=== PATIENT | male | born 1985 | race Caucasian/White ===

== ENCOUNTER 2016-10-18 14:04 | Inpatient (IN) | payer MEDICAID ==
[~2016-10-18] VITALS: Ht 172.7 cm; Wt 76.9 kg
[2016-10-18 15:38] VITALS: BP 111/74
[2016-10-18 16:45] VITALS: BP 120/82
[2016-10-19 06:36] VITALS: BP 116/76
[2016-10-19] MEDS: LORazepam 2 MG TABLET PO PRN ×3 (08:36→16:54)
[2016-10-19] MEDS: BENZTROPINE MESYLATE 0.5 MG TABLET PO SCH ×4 (08:36→16:57)
[2016-10-19] MEDS: HALOPERIDOL 5 MG TABLET PO SCH ×4 (08:36→16:56)
[2016-10-19 16:03] VITALS: BP 112/76
[2016-10-20 06:23] VITALS: BP 126/79
[2016-10-20] MEDS: HALOPERIDOL 5 MG TABLET PO SCH ×2 (09:16→16:38)
[2016-10-20] MEDS: BENZTROPINE MESYLATE 0.5 MG TABLET PO SCH ×2 (09:16→16:38)
[2016-10-20 09:20] VITALS: BP 110/62
[2016-10-20 16:06] VITALS: BP 111/68
[2016-10-20] MEDS: LORazepam 2 MG TABLET PO PRN (16:38)
[2016-10-21 06:42] VITALS: BP 102/63
[2016-10-21 07:45] LABS: BASOPHILS # (AUTO) 0.03 K/uL (0.00-0.20); BASOPHILS % (AUTO) 0.4 % (0.0-2.0); EOSINOPHILS # (AUTO) 0.34 K/uL (0.00-0.70); EOSINOPHILS % (AUTO) 4.35 % (1.0-6.0); HEMATOCRIT 50.6 % (41-53); HEMOGLOBIN 16.5 g/dL (13.5-17.5); LYMPHOCYTES # (AUTO) 3.2 K/uL (1.0-4.8); LYMPHOCYTES % (AUTO) 41.5 % (22.0-44.0); MEAN CORPUSCULAR HEMOGLOBIN 28.5 pg (26.0-34.0); MEAN CORPUSCULAR HGB CONC 32.7 G/dL (31.0-37.0); MEAN CORPUSCULAR VOLUME 87 fL (80-100); MONOCYTES # (AUTO) 0.6 K/uL (0.1-1.0); MONOCYTES % (AUTO) 7.8 % (2.0-9.0); NEUTROPHILS # (AUTO) 3.6 K/uL (1.8-7.7); NEUTROPHILS % (AUTO) 45.9 % (40.0-70.0); PLATELET COUNT (AUTO) 365 K/uL (150-450); RED CELL DISTRIBUTION WIDTH 14.1 % (11.5-14.5); WHITE BLOOD COUNT (AUTO) 7.8 K/uL (4.5-11.0)
[2016-10-21 08:12] LABS: ALANINE AMINOTRANSFERASE 31 U/L (12-78); ALBUMIN 3.6 g/dL (3.4-5.0); ANION GAP 8 mmol/L (8-16); ASPARTATE AMINOTRANSFERASE 13 U/L (15-37); BILIRUBIN,TOTAL 0.3 mg/dL (0.1-1.0); CARBON DIOXIDE 26 mmol/L (22-29); CHLORIDE 106 mmol/L (98-107); GLOMERULAR FILTR. RATE CALC > 60 mL/min (>60); POTASSIUM 4.7 mmol/L (3.5-5.1); SODIUM SERUM 140 mmol/L (136-145); TOTAL PROTEIN, SERUM 6.8 g/dL (6.4-8.2); UREA NITROGEN, BLOOD 11 mg/dL (7-18)
[2016-10-21 08:39] VITALS: BP 132/70
[2016-10-21] MEDS: BENZTROPINE MESYLATE 0.5 MG TABLET PO SCH ×2 (08:41→16:20)
[2016-10-21] MEDS: HALOPERIDOL 5 MG TABLET PO SCH ×2 (08:41→16:20)
[2016-10-21] MEDS: LORazepam 2 MG TABLET PO PRN ×2 (11:09→18:54)
[2016-10-21 16:00] VITALS: BP 128/71
[2016-10-21] MEDS: HALOPERIDOL 5 MG TABLET PO PRN (18:54)
[2016-10-21] MEDS: ZOLPIDEM TARTRATE 10 MG TABLET PO PRN (20:37)
[2016-10-22 04:48] VITALS: BP 131/74
[2016-10-22] MEDS: HALOPERIDOL 5 MG TABLET PO SCH ×2 (08:37→17:10)
[2016-10-22] MEDS: LORazepam 2 MG TABLET PO PRN ×3 (08:37→17:26)
[2016-10-22] MEDS: BENZTROPINE MESYLATE 0.5 MG TABLET PO SCH ×2 (08:37→17:10)
[2016-10-22] MEDS: HALOPERIDOL 5 MG TABLET PO PRN (13:22)
[2016-10-22 16:00] VITALS: BP 102/66
[2016-10-22] MEDS: ZOLPIDEM TARTRATE 10 MG TABLET PO PRN (20:48)
[2016-10-23 05:14] VITALS: BP 112/71
[2016-10-23 08:00] VITALS: BP 127/69
[2016-10-23] MEDS ORDERED: VENLAFAXINE HCL 75 MG ER CAPSULE PO SCH (09:00)
[2016-10-23] MEDS: BENZTROPINE MESYLATE 0.5 MG TABLET PO SCH ×2 (09:31→16:40)
[2016-10-23] MEDS: LORazepam 2 MG TABLET PO PRN ×2 (09:31→14:26)
[2016-10-23] MEDS: HALOPERIDOL 5 MG TABLET PO SCH ×2 (09:31→16:40)
[2016-10-23] MEDS ORDERED: ACETAMINOPHEN 325 MG TABLET PO PRN (15:00)
[2016-10-23] MEDS ORDERED: IBUPROFEN 600 MG TABLET PO PRN (15:00)
[2016-10-23 16:00] VITALS: BP 108/66
[2016-10-23] MEDS: ZOLPIDEM TARTRATE 10 MG TABLET PO PRN (21:24)
[2016-10-24] MEDS ORDERED: HALO5 PO (06:14)
[2016-10-24 06:15] VITALS: BP 110/65
[2016-10-24] MEDS ORDERED: VENL-68 PO (06:15)
[2016-10-24] MEDS ORDERED: BENZ0.5T6 PO (06:16)
[2016-10-24] MEDS ORDERED: VENLAFAXINE HCL 75 MG ER CAPSULE PO SCH (09:00)
== END 2016-10-24 07:30 | disposition home or self-care (01) | DRG 751 ==
LOC: B3A 15:55
PROVIDERS: ADMIT Psychiatry & Neurology Psychiatry; ATTEND Psychiatry & Neurology Psychiatry
PROC: HZ47ZZZ Group Counseling for Substance Abuse Treatment, Motivational Enhancement (ICD-10-PCS; principal; 2016-10-19)
DX: F29 Unspecified psychosis not due to a substance or known physiological condition (principal); F15.20 Other stimulant dependence, uncomplicated; F12.90 Cannabis use, unspecified, uncomplicated; F22 Delusional disorders; F39 Unspecified mood [affective] disorder; J45.909 Unspecified asthma, uncomplicated; R45.87 Impulsiveness; F17.200 Nicotine dependence, unspecified, uncomplicated; Z72.89 Other problems related to lifestyle; Z91.19 Patient's noncompliance with other medical treatment and regimen; Z79.899 Other long term (current) drug therapy
CPT/HCPCS: 84443